=== PATIENT | female | born 1955 | race Caucasian/White ===

== ENCOUNTER 2024-03-02 19:00 | Emergency (ER) | payer MEDICARE, BC ==
[~2024-03-02] VITALS: Ht 157.5 cm; Wt 62.1 kg
[2024-03-02 19:43] LABS: BILIRUBIN, URINE NEGATIVE (negative); BLOOD/HGB, URINE TRACE-I (Negative); KETONE, URINE NEGATIVE (Negative); LEUK ESTERASE, URINE NEGATIVE (negative); NITRITE, URINE NEGATIVE (negative)
[2024-03-02] MEDS ORDERED: ACETAMINOPHEN 325 MG TAB PO ONE ×2 (19:45→21:30)
[2024-03-02 19:48] LABS: BASOPHILS 0.1 % (0-2); EOSINOPHILS 0.1 % (0-6); HEMATOCRIT 42.4 % (35.0-50.0); HEMOGLOBIN 14.5 g/dL (12.0-18.0); LYMPHOCYTES 4.2 % (24-44); MCH 31.6 (27-36); MCHC 34.1 g/dl (30-36); MCV 92.5 fl (81-99); MONOCYTES 4.8 % (0-12); NEUTROPHILS 90.8 % (39-80); PLATELET COUNT 144 K/uL (140-440); RBC 4.58 M/ul (4.3-5.7); RDW 13.1 (10.5-15.0)
[2024-03-02 19:53] LABS: BACTERIA, URINE NONE SEEN /hpf (negative); CASTS, URINE NONE SEEN \\lpf; COLLECTION TYPE, URINE CLEAN CATCH; CRYSTALS, URINE NONE SEEN (0-1+); EPITHELIAL CELLS, URINE SQUAMOUS 1+ /lpf (0-1+); REFLEX CULTURE, URINE No (No)
[2024-03-02 19:54] LABS: ALBUMIN 3.4 g/dL (3.4-5.0); ALBUMIN/GLOBULIN RATIO 0.94 (1.1-2.4); ANION GAP 13.9 (7-21); BILIRUBIN, TOTAL 0.9 ng/dL (0.2-1.0); CALCIUM 9.3 mg/dL (8.5-10.1); CREATININE, SERUM 1.19 mg/dL (0.55-1.02); POTASSIUM 3.9 mmol/L (3.5-5.1)
[2024-03-02 20:00] LABS: LACTIC ACID, BLOOD 2.3 mmol/L (0.4-2.0)
[2024-03-02] MEDS ORDERED: SODIUM CHLORIDE 0.9% 1,000 ML IV ONE (20:15)
[2024-03-02] MEDS ORDERED: DEXAMETHASONE SOD PHOS 4 MG/ML VIAL IV ONE (21:30)
[2024-03-02] MEDS ORDERED: diazePAM 10 MG/2 ML SYR IV ONE (21:30)
[2024-03-02 22:05] LABS: INFLUENZA B NAA NEGATIVE (NEGATIVE); RESPIRATORY SYNCYTIAL VIR NAA NEGATIVE (NEGATIVE)
[2024-03-02 22:20] LABS: ACETAMINOPHEN 0 ug/mL (10-30)
[2024-03-02] MEDS ORDERED: SODIUM CHLORIDE 0.9% 1,000 ML IV SCH (23:45)
[2024-03-02 23:46] LABS: ALBUMIN 3.3 g/dL (3.4-5.0); ALBUMIN/GLOBULIN RATIO 0.89 (1.1-2.4); BILIRUBIN, DIRECT 0.2 mg/dL (0.0-0.2); BILIRUBIN, INDIRECT 0.7 (0.1-0.7); BILIRUBIN, TOTAL 0.9 ng/dL (0.2-1.0)
[2024-03-03] MEDS ORDERED: PIPERACILLIN/TAZOBACTAM 4.5 GM in DEXTROSE 5% 100 ML IV ONE (02:30)
[2024-03-03] MEDS ORDERED: PIPERACILLIN/TAZOBACTAM 4.5 GM VIAL ONE (02:46)
[2024-03-03] MEDS ORDERED: ondansetron HCL 4 MG/2 ML VIAL IV PRN (05:00)
[2024-03-03] MEDS ORDERED: fentaNYL citrate 100 MCG/2 ML VIAL IV PRN (05:15)
[2024-03-03] MEDS ORDERED: PIPERACILLIN/TAZOBACTAM 3.375 GM in DEXTROSE 5% 100 ML IV SCH ×2 (06:00→11:00)
[2024-03-03 06:20] LABS: BASOPHILS 0.3 % (0-2); EOSINOPHILS 0.2 % (0-6); HEMOGLOBIN 13.4 g/dL (12.0-18.0); LYMPHOCYTES 6.5 % (24-44); MCH 31.7 (27-36); MCHC 33.6 g/dl (30-36); MCV 94.3 fl (81-99); PLATELET COUNT 127 K/uL (140-440); RBC 4.24 M/ul (4.3-5.7); RDW 13.3 (10.5-15.0)
[2024-03-03 06:35] LABS: ALBUMIN 2.8 g/dL (3.4-5.0); ALBUMIN/GLOBULIN RATIO 0.82 (1.1-2.4); ANION GAP 11.9 (7-21); BUN/CREATININE RATIO 14.03 (6.0-28.6); CALCIUM 8.5 mg/dL (8.5-10.1); CREATININE, SERUM 1.14 mg/dL (0.55-1.02); POTASSIUM 3.9 mmol/L (3.5-5.1); PROTEIN, TOTAL 6.2 g/dL (6.4-8.2)
--- NOTE | 2024-03-03 11:53 | EKG ---
[facility] [address] [place] [address] Signed Sinus tachycardia Possible Inferior infarct , age undetermined Anterior infarct , age undetermined Abnormal ECG No previous ECGs available Confirmed by Alfredo Waters MD () on 03/03/2024 11:53:30 AM Electronically Signed By: ALFREDO WATERS MD 03/03/24 1153 PATIENT NAME: YOU STRINGER Electrocardiogram DATE OF : 57 PHYSICIAN: ALFREDO WATERS MD REPORT #: [id number] REPORT IS CONFIDENTIAL AND NOT TO BE RELEASED WITHOUT AUTHORIZATION
[2024-03-03 15:12] VITALS: BP 156/70
[2024-03-03] MEDS ORDERED: LEVOTHYROXINE125 MCG PO (15:13)
[2024-03-03] MEDS ORDERED: AZITHROMYCIN250 MG PO (15:13)
[2024-03-03] MEDS ORDERED: PROGRAF1 MG PO (15:13)
[2024-03-03] MEDS ORDERED: LEVOTHYROXINE112 MCG PO (15:13)
[2024-03-04 16:37] LABS: CMV QNT BY NAAT, PL LOG IU/ML Not Detected (()); CMV QNT BY NAAT, PLASMA INTERP Not Detected (Not Detected); CMV QNT BY NAAT, PLASMA IU/ML Not Detected (())
[2024-03-04 16:47] LABS: HEPATITIS A ANTIBODY, IGM Negative (Negative); HEPATITIS B CORE ANTIBODY, IGM Negative (Negative); HEPATITIS B SURFACE ANTIGEN Negative (Negative); HEPATITIS C AB CIA INTERP Negative (Negative); HEPATITIS C ANTIBODY CIA INDEX 0.02 IV (())
== END 2024-03-03 15:12 | disposition short-term general hospital (02) ==
LOC: ED 19:00
PROVIDERS: Family Medicine
DX: A41.9 Sepsis, unspecified organism (principal); T86.49 Other complications of liver transplant; K83.09 Other cholangitis; Y83.8 Other surgical procedures as the cause of abnormal reaction of the patient, or of later complication, without mention of misadventure at the time of the procedure; E03.9 Hypothyroidism, unspecified; Z88.8 Allergy status to other drugs, medicaments and biological substances; Z88.6 Allergy status to analgesic agent; Z88.5 Allergy status to narcotic agent
CPT/HCPCS: 36415; 71045; 74177; 76705; 80053; 80074; 80076; 81001; 82977; 83605; 83690; 85025; 86308; 87040; 87502; 93005; 93010; 96366; 96375; 99285-25; A9270; G0480; J1100; J2543; J3360; J7030; U0002